=== PATIENT | male | born 1960 | race Caucasian/White ===

== ENCOUNTER → 2018-07-07 | Outpatient (CLI) | payer OTHER ==
--- NOTE | 2018-07-07 14:41 | RADIOLOGY REPORT (SQ) ---
EXAM DESCRIPTION: MRI RT LOWER JOINT WITHOUT COMPLETED DATE/TIME: 07/07/2018 1:01 pm REASON FOR STUDY: R KNEE PAIN M25.561 PAIN IN RIGHT KNEE M23.91 UNSPECIFIED INTERNAL DERANGEMENT OF RIGHT KNEE COMPARISON: None. TECHNIQUE: Rightknee images acquired and stored on PACS. Multiplanar images include fat sensitive s equences as T1, water sensitive sequences as FST2 or STIR, cartilage sensitive sequences as FSPD, and gradient echo sequences. LIMITATIONS: None. FINDINGS: JOINT AND BURSAE: Small joint effusion. No popliteal cyst. BONE CORTEX AND MARROW: No alteration of signal to suggest marrow replacement. No worrisome bone lesi ons. No occult fracture. ACL: Intact. No degeneration or ganglion cyst. PCL: Intact. MCL: Intact. No periligamentous edema or fluid. LCL: Intact. No periligamentous edema or fluid. MEDIAL MENISCUS: Complex tear central an posterior meniscus with a flap component, vertical radial co mponent, and horizontal component. LATERAL MENISCUS: No tears. No abnormal signal. MEDIAL COMPARTMENT: Irregular cartilaginous loss of the weight-bearing surface of the medial femoral condyles. Reactive marrow edema. Small osteophytes. LATERAL COMPARTMENT: Focal central cartilaginous loss of the lateral femoral condyle weight-bearing s urface. PATELLA: Focal chondromalacia of the lateral facet of the patella with associated subchondral cyst fo rmation. Trochlear cartilage is intact. Mild patellofemoral osteophytes. EXTENSOR MECHANISM: Intact. Quadriceps and patella tendons normal. SOFT TISSUES: Adjacent muscles and subcutaneous tissues normal. Normal flow void in popliteal artery and vein. OTHER: No other significant finding. IMPRESSION: Complex tear of the medial meniscus. Degenerative changes involving the condyles of the mediolateral compartments. Focal lateral facet chondromalacia patella. Small joint effusion. TECHNICAL DOCUMENTATION: JOB ID: [id number] [employer]- All Rights Reserved Reading location - IP/workstation name: [email or web address]
== END ==
LOC: RAD 11:58
PROVIDERS: ATTEND Orthopaedic Surgery
DX: M25.561 Pain in right knee (principal); M23.91 Unspecified internal derangement of right knee